=== PATIENT | male | born 1995 | race American Indian/Alaskan Native ===

== ENCOUNTER 2017-02-21 14:55 | Emergency (ER) | payer OTHER ==
[2017-02-21 15:18] VITALS: BP 150/88
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
[2017-02-21] MEDS ORDERED: TORADOL IM ONE (17:01)
[2017-02-21] MEDS ORDERED: FLEXERIL PO ONE (17:02)
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
== END 2017-02-21 17:29 | disposition home or self-care (01) ==
LOC: ED 14:55
DX: M54.5 Low back pain (principal); M54.2 Cervicalgia; F17.200 Nicotine dependence, unspecified, uncomplicated; Z88.0 Allergy status to penicillin; V49.49XA Driver injured in collision with other motor vehicles in traffic accident, initial encounter; Y93.89 Activity, other specified; Y92.89 Other specified places as the place of occurrence of the external cause; Y99.8 Other external cause status
CPT/HCPCS: 72125; 96372; 99284; J1885